=== PATIENT | female | born 1970 | race Caucasian/White ===

== ENCOUNTER 2024-01-14 06:48 | Day surgery (SDC) | payer OTHER, SELFPAY ==
[2023-11-29 14:08] VITALS: BMI 20.5
[2023-12-31 13:48] VITALS: BMI 21.2
--- NOTE | 2024-01-13 14:29 | PM.HPGS ---
History of Present Illness History of Present Illness Consent: Risks, benefits, and alternatives have been discussed and questions answered. Patient agrees to proceed with procedure. Chief complaint: Screening neoplasm of colon Narrative: Lourdes Dixon is a 53 year old female who is referred for colon cancer screening. Review of Systems Review of Systems: All systems reviewed & are unremarkable except as noted in HPI and below PMFSH Past Medical History Medical History Screening mammogram for breast cancer Surgical History Surgical History Delivery by section (11/18/01) primary c/s twins Family History Family History Father Heart disease Grandparent H/O ovarian cancer maternal grandmother Social History Social History Smoking packs per day: 1 Smoking cigarettes per day: 20.0 Years smoked: 38 Smoking pack-years: 38.00 Smoking status: Current every day smoker Tobacco type: cigarettes Alcohol intake: current Alcohol use details: occasional Substance use: never Substance use type: does not use Lack of Transportation: No Lack of Food: Never True Current Housing: I Have Housing Concerned About Future Housing: No Difficulty Paying Gas/Electric Bills: No Difficulty Paying for Meds: No Currently Unemployed: No Difficulty w/ Childcare or Family Care: No Living arrangements: with family Occupation/Education: occupation 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 Gender identity (if verbalized by the patient): Female Sexual Orientation (if Verbalized by the Patient): Straight or Heterosexual Spiritual care concerns: No Meds Home Medications and Allergies Home Medications Medication Instructions Recorded Confirmed Type estradiol 0.5 mg tablet 0.5 mg PO DAILY #90 tabs 03/20/23 01/14/24 Rx progesterone micronized 100 mg 100 mg PO QHS #90 caps 03/20/23 01/14/24 Rx capsule cetirizine 10 mg tablet (Allergy 10 mg PO DAILY PRN Allergy Symptoms 12/31/23 01/14/24 History Relief (cetirizine)) Allergies Allergy/AdvReac Type Severity Reaction Status Date / Time No Known Allergies Allergy Verified 01/14/24 07:50 Exam Const: General: alert Orientation/consciousness: patient oriented x3 Resp: Auscultation: clear to auscultation bilaterally Cardio: Rhythm: regular rhythm GI: GI Palp: Yes Soft to palpation and No Tenderness to palpation present (GI) Neuro: General: patient oriented x3 Assessment and Plan Assessment and plan (1) Colon cancer screening: Code(s): Z12.11 - Encounter for screening for malignant neoplasm of colon Status: Acute Assessment and Plan: Colonoscopy with possible biopsy or polypectomy or cautery or injection of substances.
[2024-01-14 07:59] VITALS: BP 109/89; PULSE 75; RESP 18; TEMP 36.6; O2SAT 100; BMI 20.1
--- NOTE | 2024-01-14 07:59 | WPDANESEPPF ---
Anes - Initial Pre Proc Eval Procedure: Operation Date: 01/14/24 09:00 Proposed Procedures p Screening Colonoscopy - Blaine Ortiz MD Date/Time: 01/14/24 07:59 Surgeon: Blaine Ortiz MD Pre Op Diagnosis: Screening neoplasm of colon Patient Data Age: 53 Gender: F Height: 1.7 m Weight: 61.5 kg Allergies Allergy/AdvReac Type Severity Reaction Status Date / Time No Known Allergies Allergy Verified 01/14/24 07:50 Home Medications Medication Instructions Recorded Confirmed Type estradiol 0.5 mg tablet 0.5 mg PO DAILY #90 tabs 03/20/23 01/14/24 Rx progesterone micronized 100 mg 100 mg PO QHS #90 caps 03/20/23 01/14/24 Rx capsule cetirizine 10 mg tablet (Allergy 10 mg PO DAILY PRN Allergy Symptoms 12/31/23 01/14/24 History Relief (cetirizine)) Patient hx anesthesia problems: none Family hx anesthesia problems: none Results Review: All pre-operative results and documents have been reviewed as part of the pre-operative evaluation. [facility] Past Medical History Medical History Screening mammogram for breast cancer Surgical History Surgical History Delivery by section (11/18/01) primary c/s twins Family History Family History Father Heart disease Grandparent H/O ovarian cancer maternal grandmother Social History Social History Smoking packs per day: 1 Smoking cigarettes per day: 20.0 Years smoked: 38 Smoking pack-years: 38.00 Smoking status: Current every day smoker Tobacco type: cigarettes Alcohol intake: current Alcohol use details: occasional Substance use: never Substance use type: does not use Lack of Transportation: No Lack of Food: Never True Current Housing: I Have Housing Concerned About Future Housing: No Difficulty Paying Gas/Electric Bills: No Difficulty Paying for Meds: No Currently Unemployed: No Difficulty w/ Childcare or Family Care: No Living arrangements: with family Occupation/Education: occupation 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 Gender identity (if verbalized by the patient): Female Sexual Orientation (if Verbalized by the Patient): Straight or Heterosexual Spiritual care concerns: No Anes - Eval Final PreProcedure Day of Procedure 01/14/24 07:59 Patient weight: normal Heart: regular rate and rhythm Lungs: clear to auscultation Airway: Mallampati scale class II Neurological: alert and oriented Last oral intake: >/= 8 hours ASA classification: II Emergent: no Anesthetic plan: proceed Anesthesia type and monitoring: general GIVS and standard monitoring Results Review: All pre-operative results and documents have been reviewed as part of the pre-operative evaluation. Informed Consent: The patient's anesthetic plan and its attendant risks and benefits were discussed with the patient/family/POA. Questions were solicited and answers provided to the satisfaction of the patient/family/POA.
[2024-01-14] MEDS: LACTATED RINGERS 1,000 ML 150 ML IV CONT (08:03)
[2024-01-14] MEDS: SIMETHICONE ORAL SUSPENSION 20 MG/0.3 ML 30 ML BOTTLE 0.6 ML IRRIGATION (08:54)
[2024-01-14 09:00] VITALS: BP 88/59; PULSE 65; RESP 14; O2SAT 98
[2024-01-14 09:10] VITALS: BP 103/64; PULSE 64; RESP 15; O2SAT 100
--- NOTE | 2024-01-14 09:18 | WPDANESPN ---
Anes - Prog Note Post-Op Date/Time: 01/14/24 09:18 Cardiovascular status: normal Respiratory status: normal Airway patency: baseline Mental status: baseline Post-Op hydration status: normal Vital Signs: Last Vital Signs Temp 36.6 C 01/14/24 07:59 Pulse 64 01/14/24 09:10 Resp 15 01/14/24 09:10 BP 103/64 01/14/24 09:10 Pulse Ox 100 01/14/24 09:10 O2 Del Method Room Air 01/14/24 09:10 Pain Score (VAS): 0/10 I/O: Intake & Output 01/13/24 01/14/24 01/14/24 23:59 07:59 15:59 Intake Total 600 Balance 600 Patient Feedback: Patient satisfied with anesthetic care.
[2024-01-14 09:20] VITALS: BP 107/72; PULSE 63; RESP 16; O2SAT 100
== END 2024-01-14 09:28 | disposition home or self-care (01) ==
PROVIDERS: PCP Nurse Practitioner; Visit Provider Internal Medicine Gastroenterology
PROC: 0DJD8ZZ Inspection of Lower Intestinal Tract, Via Natural or Artificial Opening Endoscopic (ICD-10-PCS; CPT 45378; principal; 2024-01-14 09:00)
DX: Z12.11 Encounter for screening for malignant neoplasm of colon (principal)
CPT/HCPCS: 45378